=== PATIENT | female | born 1990 | race Caucasian/White ===

== ENCOUNTER 2019-09-26 08:30 | Outpatient (RCR) | payer OTHER, SELFPAY | END 2019-09-26 23:59 | disposition home or self-care (01) | LOC: ANHAUDIO 08:30 | PROVIDERS: Visit Provider Pediatrics | DX: Z46.1 Encounter for fitting and adjustment of hearing aid (principal) | CPT/HCPCS: 99199; V5160; V5261 ==

== ENCOUNTER 2020-05-13 12:45 | Outpatient (RCR) | payer OTHER, SELFPAY | END 2020-05-13 23:59 | disposition home or self-care (01) | LOC: ANHAUDIO 12:45 | PROVIDERS: Visit Provider Internal Medicine | DX: Z46.1 Encounter for fitting and adjustment of hearing aid (principal) | CPT/HCPCS: 99199 ==

== ENCOUNTER 2021-06-06 08:03 | Outpatient (RCR) | payer OTHER, SELFPAY | END 2021-09-04 23:59 | disposition home or self-care (01) | LOC: ANHBWCAUD 08:03 | PROVIDERS: Visit Provider Internal Medicine | DX: Z46.1 Encounter for fitting and adjustment of hearing aid (principal) | CPT/HCPCS: 99199 ==

== ENCOUNTER 2021-06-24 14:03 | Outpatient (CLI) | payer OTHER, SELFPAY ==
[2021-06-24 21:52] LABS: Beta HCG Quantitative < 2.39 mIU/ML
[2021-06-24 22:15] LABS: HIV 1/2 Ab P24 Ag Result Negative (Negative)
[2021-06-25 13:50] LABS: Rapid Plasma Reagin Non-Reactive (NonReactive)
[2021-06-27 21:55] LABS: Hepatitis Be Antigen Nonreactive
== END 2021-06-24 14:04 | disposition home or self-care (01) ==
LOC: ANHBWCLAB 14:04
PROVIDERS: Visit Provider Obstetrics & Gynecology
DX: Z34.90 Encounter for supervision of normal pregnancy, unspecified, unspecified trimester (principal); Z3A.00 Weeks of gestation of pregnancy not specified
CPT/HCPCS: 36415; 84702; 86592; 86695; 86696; 86703; 87350; G0432

== ENCOUNTER 2021-10-06 18:07 | Emergency (ER) | payer OTHER, SELFPAY ==
[2021-10-06 18:24] VITALS: BP 134/84; PULSE 95; RESP 20; TEMP 37.1; O2SAT 100
--- NOTE | 2021-10-06 18:56 | ED.GENADULT ---
HPI - General Adult General Chief complaint: Upper Respiratory Infection Stated complaint: congestion aches dizzy Source: patient Mode of arrival: ambulatory Limitations: no limitations History of Present Illness HPI narrative: Patient presents for evaluation of sick symptoms that she describes as COVID symptoms . Symptom onset 3 days ago. She initially had some sinus congestion and drainage. She has developed a hoarse voice, ear pressure bilaterally. She has a nonproductive cough and generalized body aches. She has some mild shortness of breath with exertion. She denies chest pain. No fever, chills, nausea, vomiting, diarrhea, loss of sense of taste/smell. She lives with her grandmother and states that her grandmother had what she thought was a common cold a week ago. Pt denies personal hx of COVID. She has received COVID vaccination. She recently picked up some mucinex. She had left shoulder surgery at the end of August per Dr Phan. No additional complaints or concerns. Related Data Home Medications Medication Instructions Recorded Confirmed No Home Medications 10/06/21 10/06/21 Allergies Allergy/AdvReac Type Severity Reaction Status Date / Time metronidazole [From Metrogel] Allergy Severe vaginal Verified 10/06/21 18:56 swelling and itching Review of Systems Review of Systems: CONSTITUTIONAL: Denies fever, chills, or sweats. EYES: Denies visual changes, redness, or discharge. ENT: Reports bilateral ear fullness, sinus congestion/drainage and hoarse voice CARDIOVASCULAR: Denies chest pain, palpitations, or edema. RESPIRATORY: Reports cough and SOB GASTROINTESTINAL: Denies abdominal pain, nausea, vomiting, or diarrhea. GENITOURINARY: Denies dysuria or hematuria. SKIN: Denies rash or itching. MUSCULOSKELETAL: Reports generalized body aches NEUROLOGIC: Reports headache. Denies numbness, dizziness, or weakness. PSYCHIATRIC: Denies anxiety or depression. [facility] Past Medical History Medical History Abnormal Pap smear of cervix 06/24/21 LGSIL, HPV neg Allergies Anxiety Surgical History Surgical History (Updated 10/06/21 @ 19:07 by RUBINA Orellana, ) H/O endoscopy H/O shoulder surgery History of colposcopy 07/21/21 Benign Family History Family History Mother Diabetes mellitus Depression Anxiety Sibling Depression Anxiety Grandparent Diabetes mellitus Hypertension Anxiety Depression Heart disease Social History Social History Smoking status: Never smoker Smoking end date: 09/20/20 Alcohol intake: current Alcohol use details: once to twice monthly Substance use: current Substance use type: marijuana Exam Narrative: GENERAL: Well-appearing, well-nourished, and in no acute distress. HEAD: Normocephalic, atraumatic. EYES: PERRLA and EOMI. ENT: Nares clear, no rhinorrhea or epistaxis. Mucous membranes moist. Oropharynx without tonsillar hypertrophy exudate or other lesions. Bilateral TMs pearly blank nonbulging NECK: Supple. No adenopathy or masses. No carotid bruits or JVD CHEST: Clear to auscultation. Cough present on exam. No respiratory distress. No wheezes rales or rhonchi HEART: Regular rate and rhythm. No murmur heard. Normal peripheral pulses. ABDOMEN: Soft, nontender, nondistended, normal active bowel sounds. EXTREMITIES: Normal range of motion. No edema. SKIN: Warm, dry, no rash. NEURO: No focal deficits. Alert and oriented x3. PSYCH: Normal mood and affect. Course Course Emergency Course: This is a 31-year-old female who presented with complaints of respiratory symptoms. COVID was positive. Patient nontoxic-appearing. Saturations on her percent on room air. Offered chest x-ray, which she declined. Advised on supportive care and need for quara
== END 2021-10-06 19:15 | disposition home or self-care (01) ==
PROVIDERS: Emergency Provider Nurse Practitioner; PCP Internal Medicine
DX: U07.1 COVID-19 (principal)
CPT/HCPCS: 87426; 99213; C9803; G0463